=== PATIENT | female | born 1945 | race Caucasian/White ===

== ENCOUNTER → 2018-11-30 | Outpatient (REF) | payer OTHER ==
[2018-12-01 14:41] LABS: COMPLEMENT C3 121 MG/DL (90-180); COMPLEMENT C4 30 MG/DL (10-40); TOTAL PROTEIN 7.2 GM/DL (6.4-8.2)
[2018-12-01 14:51] LABS: BACTERIA, URINE AUTO 1+ (NEGATIVE); CALCIUM OXALATE CRYSTALS MODERATE; MUCUS, URINE SMALL (NEGATIVE); RBC, URINE AUTO 3 /HPF (0-3); SQUAMOUS EPITHELIAL CELL UR AU 2 /HPF (0-6); WBC, URINE AUTO 11 /HPF (0-3)
[2018-12-01 14:53] LABS: HEPATITIS B SURFACE ANTIBODY POSITIVE (POSITIVE)
[2018-12-01 15:03] LABS: HEPATITIS B SURFACE ANTIGEN NEGATIVE (NEGATIVE)
[2018-12-01 15:06] LABS: URINE TOTAL PROTEIN 405.7 MG/DL (0-12)
[2018-12-01 15:32] LABS: HEPATITIS B CORE ANTIBODY IGM NEGATIVE (NEGATIVE)
[2018-12-02 13:17] LABS: ALBUMIN % 55.6 % (55.8-66.1); ALPHA-1-GLOBULIN % 3.3 % (2.9-4.9); ALPHA-1-GLOBULINS 0.24 GM/DL (0.17-0.41); ALPHA-2-GLOBULINS 0.99 GM/DL (0.42-0.99); ALPHA-2-GLOBULINS % 13.8 % (7.1-11.8); BETA-1-GLOBULINS 0.45 GM/DL (0.28-0.60); BETA-1-GLOBULINS % 6.2 % (4.7-7.2); BETA-2-GLOBULINS % 5.5 % (3.2-6.5); GAMMA GLOBULIN % 15.6 % (11.1-18.8); GAMMA GLOBULINS 1.12 GM/DL (0.65-1.58)
[2018-12-02 16:00] LABS: URINE VOLUME RANDOM ML
[2018-12-02 16:01] LABS: UPEP INTERPRETATION NO M-SPIKE NOTED
[2018-12-07 00:06] LABS: ANCA-ATYPICAL <1:20 titer (Neg:<1:20); ANTI DS-DNA AB <1:10 titer (.); ANTI-GLOMERULAR BASEMENT MEMB 3 units (0-20); ANTINUCLEAR ANTIBODIES DIRECT Negative (Negative); CYTOPLASMIC NEUTROP AB ANCA-C <1:20 titer (Neg:<1:20); Lyme Disease IgG/IgM Antibodie <0.91 ISR (0.00-0.90); Lyme Disease IgM Ab Quantitati <0.80 index (0.00-0.79); PERINUCLEAR AB ANCA-P <1:20 titer (Neg:<1:20)
== END ==
LOC: M LAB REF 13:46
PROVIDERS: ATTEND Internal Medicine Nephrology
DX: R31.9 Hematuria, unspecified (principal); R80.9 Proteinuria, unspecified

== ENCOUNTER → 2018-12-06 | Outpatient (CLI) | payer MEDICARE, BC ==
--- NOTE | 2018-12-07 07:08 | REP ---
RENAL ULTRASOUND: Real-time sonographic evaluation of kidneys performed. Kidneys are normal in size and echotexture, right kidney measuring 10.5 x 5.3 x 5.2 cm and left kidney 11.5 x 4.2 x 4.9 cm. There is mild dilation of the right renal pelvis which could represent an extrarenal pelvis. There is no calyceal dilatation. There is no left hydronephrosis. Three cysts are seen in the mid right kidney, the largest measuring 2.0 x 2.5 x 1.9 cm. A cyst in the mid left kidney measures 6 mm. IMPRESSION: Mild dilatation of the right renal pelvis may represent an extrarenal pelvis. No calyceal dilatation bilaterally. Bilateral renal cysts. Electronically Signed by Flako Champagne MD 12/08/2018 10:00 A
--- NOTE | 2018-12-07 07:10 | REP ---
BLADDER ULTRASOUND: Real-time sonographic evaluation of the urinary bladder performed. The bladder measures 3.5 x 9.8 x 5.2 cm for a total volume of 116 mL. No mass or calculus is seen. A right ureteral jet is seen with Doppler color evaluation. A left ureteral jet could not be visualized. Postvoid residual is 37 mL, which is 32% of the original volume. IMPRESSION: No mass or calculus. Postvoid residual of 32%. Left ureteral jet could not be visualized. Electronically Signed by Flako Champagne MD 12/08/2018 10:00 A
== END ==
LOC: M RAD 12:11
PROVIDERS: ATTEND Internal Medicine Nephrology
DX: N18.2 Chronic kidney disease, stage 2 (mild) (principal); R80.9 Proteinuria, unspecified

== ENCOUNTER → 2019-03-16 | Outpatient (REF) | payer MEDICARE, BC | LOC: M LAB LCGH 13:37 | PROVIDERS: ATTEND Nurse Practitioner Family | DX: C44.329 Squamous cell carcinoma of skin of other parts of face (principal); C44.01 Basal cell carcinoma of skin of lip ==

== ENCOUNTER → 2020-11-12 | Outpatient (REF) | LOC: M LAB LCGH 19:46 | PROVIDERS: ATTEND Physician Assistant | DX: R68.89 Other general symptoms and signs (principal) ==

== ENCOUNTER 2022-02-17 14:44 | Inpatient (IN) | payer MEDICARE, BC ==
[~2022-02-17 14:44] MED LIST changes: -ACET-897 PO; -HOME MED LIST COMPLETE! XX SCH; -LIDOCAINE 1% MDV 20ML VIAL As Ordered ONE; -NS 500 ML IV SCH; -VITA100093 PO
[2022-02-17] MEDS ORDERED: MOM 30ML SUSPENSION UDC PO PRN (15:05)
[2022-02-17] MEDS ORDERED: MAALOX 30 ML SUSP *UDC PO PRN (15:05)
[2022-02-17 16:41] VITALS: BP 170/77
[2022-02-17 17:10] LABS: HEMATOCRIT 40.4 % (36.0-47.0); HEMOGLOBIN 13.5 g/dl (12.0-15.5); MEAN CORPUSCULAR HEMOGLOBIN 31.1 pg (27.0-33.0); MEAN CORPUSCULAR HGB CONC 33.4 g/dl (32.0-36.5); MEAN CORPUSCULAR VOLUME 93.1 fl (80.0-96.0); PLATELET COUNT, AUTOMATED 260 10^3/uL (150-450); RED BLOOD COUNT 4.34 10^6/uL (4.00-5.40); WHITE BLOOD COUNT 9.3 10^3/uL (4.0-10.0)
[2022-02-17] MEDS ORDERED: VITA100093 PO (17:20)
[2022-02-17] MEDS ORDERED: ACET-897 PO (17:20)
[2022-02-17] MEDS: ACETAMINOPHEN TAB 650MG DOSE (2X325MG) PO PRN ×2 (17:28→23:09)
[2022-02-17] MEDS ORDERED: HOME MED LIST COMPLETE! XX SCH (17:35)
[2022-02-17 18:20] LABS: HEMATOCRIT 40.3 % (36.0-47.0); HEMOGLOBIN 13.2 g/dl (12.0-15.5)
[2022-02-17 18:41] LABS: CHLORIDE,RANDOM URINE 93 MMOL/L; CREATININE,RANDOM URINE 65.4 MG/DL; SODIUM,RANDOM URINE 93 MMOL/L
[2022-02-17 18:48] LABS: BILIRUBIN,TOTAL 0.9 MG/DL (0.3-1.2); CALCIUM LEVEL 8.9 MG/DL (8.3-10.6); CREATININE FOR GFR 1.05 MG/DL (0.55-1.30); POTASSIUM SERUM 4.1 MMOL/L (3.5-5.1); TOTAL PROTEIN 6.4 G/DL (5.7-8.2)
[2022-02-17 19:18] LABS: ALBUMIN 3.5 G/DL (3.2-5.2)
[2022-02-17 20:00] VITALS: BP 148/76
[2022-02-17] MEDS ORDERED: METOPROLOL SUCC (TopROL XL) 50MG **XL** TAB PO SCH (21:00)
[2022-02-17] MEDS ORDERED: ATORVASTATIN 20 MG TAB PO SCH (21:00)
[2022-02-17] MEDS ORDERED: DOCUSATE SODIUM 100MG CAPSULE PO SCH (21:00)
[2022-02-17 22:16] LABS: HEMATOCRIT 36.4 % (36.0-47.0); HEMOGLOBIN 12.2 g/dl (12.0-15.5)
[2022-02-17 23:21] VITALS: BP 170/72
[2022-02-18 01:18] VITALS: BP 164/82
[2022-02-18 02:09] LABS: HEMATOCRIT 35.4 % (36.0-47.0)
[2022-02-18 04:03] VITALS: BP 168/71
[2022-02-18 04:40] LABS: BASO # 0.1 10^3/uL (0.0-0.2); BASO % 0.6 % (0.0-1.0); EOS # 0.2 10^3/uL (0.0-0.5); EOS % 1.9 % (0.0-3.0); HEMATOCRIT 36.2 % (36.0-47.0); HEMOGLOBIN 11.9 g/dl (12.0-15.5); LYMPH # 2.6 10^3/uL (1.5-5.0); LYMPH % 24.3 % (24.0-44.0); MEAN CORPUSCULAR HEMOGLOBIN 31.1 pg (27.0-33.0); MEAN CORPUSCULAR HGB CONC 32.9 g/dl (32.0-36.5); MEAN CORPUSCULAR VOLUME 94.5 fl (80.0-96.0); MONO # 0.9 10^3/uL (0.0-0.8); MONO % 8.2 % (2.0-8.0); NEUTROPHILS # 6.9 10^3/uL (1.5-8.5); NEUTROPHILS % 64.5 % (36.0-66.0); PLATELET COUNT, AUTOMATED 236 10^3/uL (150-450); RED BLOOD COUNT 3.83 10^6/uL (4.00-5.40); WHITE BLOOD COUNT 10.7 10^3/uL (4.0-10.0)
[2022-02-18 05:57] LABS: ALBUMIN 3.1 G/DL (3.2-5.2); BILIRUBIN,TOTAL 0.7 MG/DL (0.3-1.2); CALCIUM LEVEL 8.6 MG/DL (8.3-10.6); CREATININE FOR GFR 1.13 MG/DL (0.55-1.30); GLOMERULAR FILTRATION RATE 49.6 (>39); MAGNESIUM LEVEL 1.7 MG/DL (1.8-2.4); POTASSIUM SERUM 3.9 MMOL/L (3.5-5.1); TOTAL PROTEIN 5.7 G/DL (5.7-8.2)
[2022-02-18 07:58] VITALS: BP 161/70
[2022-02-18] MEDS: ACETAMINOPHEN TAB 650MG DOSE (2X325MG) PO PRN ×2 (08:43→14:05)
[2022-02-18] MEDS ORDERED: amLODIPine 5 MG TAB PO SCH (09:00)
[2022-02-18] MEDS ORDERED: VITAMIN D 1,000 INTERNATIONAL UNITS TABLET PO SCH (09:00)
[2022-02-18] MEDS ORDERED: MULTIVITAMINS/MINERALS THERAP 1 TAB PO SCH (09:00)
[2022-02-18 11:40] VITALS: BP 174/70
[2022-02-18] MEDS ORDERED: FLUBLOK(EGG FREE)(QUAD)INFLUENZA VACC 0.5ML SYRINGE 18YRS & OLDER IM.IMMUN ONE (12:00)
[2022-02-18 12:35] VITALS: BP 174/70
[2022-02-18] MEDS ORDERED: IRBESARTAN 150MG TAB PO SCH (13:00)
[2022-02-18 13:43] VITALS: BP 136/64
== END 2022-02-18 14:55 | disposition home or self-care (01) | DRG 920 ==
LOC: M PCU 16:30
PROVIDERS: ADMIT Internal Medicine Nephrology; ATTEND Internal Medicine Nephrology
DX: N99.840 Postprocedural hematoma of a genitourinary system organ or structure following a genitourinary system procedure (principal); D62 Acute posthemorrhagic anemia; I48.0 Paroxysmal atrial fibrillation; I08.0 Rheumatic disorders of both mitral and aortic valves; Z79.01 Long term (current) use of anticoagulants; E78.5 Hyperlipidemia, unspecified; N18.30 Chronic kidney disease, stage 3 unspecified; E55.9 Vitamin D deficiency, unspecified; Z98.41 Cataract extraction status, right eye; Z98.42 Cataract extraction status, left eye; Z90.49 Acquired absence of other specified parts of digestive tract; I12.9 Hypertensive chronic kidney disease with stage 1 through stage 4 chronic kidney disease, or unspecified chronic kidney disease; E11.22 Type 2 diabetes mellitus with diabetic chronic kidney disease; R80.9 Proteinuria, unspecified; I95.9 Hypotension, unspecified; Z66 Do not resuscitate; Z20.822 Contact with and (suspected) exposure to COVID-19

== ENCOUNTER → 2022-02-17 | Outpatient (CLI) | payer MEDICARE, BC ==
[~2022-02-17] MED LIST: ACET-897 PO; AMLO1TAB24 PO; ELIQ5TAB PO; FURO20TA2 PO; HOME MED LIST COMPLETE! XX SCH; IRBE150T7 PO; LIDOCAINE 1% MDV 20ML VIAL As Ordered ONE; LIPI80TA PO; LMEF1TAB PO; METO1TAB7 PO; MULT-90 PO; NS 500 ML IV SCH; VITA100093 PO; vitamin D PO
[2022-02-17 11:56] LABS: INR 0.97; PROTHROMBIN TIME 13.1 SECONDS (12.5-14.5)
[2022-02-17 15:50] VITALS: BP 180/81
== END ==
LOC: M IRPRO 10:31
PROVIDERS: ATTEND Internal Medicine Nephrology
DX: R80.9 Proteinuria, unspecified (principal); E11.9 Type 2 diabetes mellitus without complications; I10 Essential (primary) hypertension; I48.91 Unspecified atrial fibrillation; N99.821 Postprocedural hemorrhage of a genitourinary system organ or structure following other procedure

== ENCOUNTER → 2022-11-03 | Outpatient (REF) | payer MEDICARE, BC ==
[~2022-11-03] MED LIST changes: +ACET-897 PO; +VITA100093 PO
[2022-11-03 18:34] LABS: BILIRUBIN,TOTAL 0.4 MG/DL (0.3-1.2); CALCIUM LEVEL 9.1 MG/DL (8.3-10.6); CREATININE FOR GFR 1.24 MG/DL (0.55-1.30); GLOMERULAR FILTRATION RATE 44.4 (>39); POTASSIUM SERUM 4.4 MMOL/L (3.5-5.1)
== END ==
LOC: M LAB REF 17:02
PROVIDERS: ATTEND Internal Medicine Interventional Cardiology
DX: I48.0 Paroxysmal atrial fibrillation (principal); Z95.0 Presence of cardiac pacemaker; I49.5 Sick sinus syndrome